=== PATIENT | male | born 1950 | race Caucasian/White ===

== ENCOUNTER → 2018-08-21 07:23 | Outpatient (CLI) | payer SELFPAY ==
[2018-08-21 09:16] LABS: Cholesterol 116 mg/dL (140-199); HDL Cholesterol 49 mg/dL (40-60); LDL Cholesterol Calculated 53 mg/dL (<100); Triglycerides 71 mg/dL (35-150)
== END ==
PROVIDERS: Visit Provider Physician Assistant
DX: E78.5 Hyperlipidemia, unspecified (principal)
CPT/HCPCS: 36415; 80061

== ENCOUNTER → 2019-04-22 13:40 | Outpatient (CLI) | payer OTHER, SELFPAY ==
--- NOTE | 2019-04-22 | DI.ECHO.S_ITS ---
[facility]---------+ [facility] +---------+ : : [address] : : : [place] : : : : [id number] : : : : Phone: [phone] Echocardiogram Report + + :Name: FAWN GONZALEZ Study Date: 04/22/2019 Height: 72 in : :[facility] Exam Location: IS Weight: 207 lb : : Gender: Male BSA: 2.2 m2 : :: 1950 Age: 68 yrs BP: 110/70 mmHg: :Reason For Study: Congenital aortic insufficiency : :Ordering Physician: Demar Jose : :[place] Performed By: Rashmi Page : + + Interpretation Summary 1) Normal left ventricular size, thickness, and systolic function (EF 55-60%). 2) Basal to mid inferior wall extending to the inferolateral are hypokinetic. 3) Mildly enlarged right ventricle with normal function. 4) The aortic valve is bicuspid. 5) There is mild to moderate aortic regurgitation. 6) The ascending aorta is moderately enlarged at 4.7cm. The aortic root is mildly dilated at 4.4cm. 7) No prior Echo available for comparison. Procedure: A two-dimensional transthoracic echocardiogram with color flow and Doppler was performed. The study quality was technically adequate. There is no prior echocardiogram noted for this patient. The patient was in sinus bradycardia with heart rates between 47-55 bpm during the exam. Left Ventricle: The left ventricle is normal in size, wall thickness, and systolic function without any focal wall motion abnormalities. The ejection fraction is estimated to be 55-60%. Basal to mid inferior wall extending to the inferolateral are hypokinetic. Diastolic parameters suggest probable normal left ventricular diastolic function and normal filling pressures. Right Ventricle: The right ventricle is mildly dilated. The right ventricular systolic function is normal. Atria: The left atrium is moderately dilated. The right atrium is severely dilated. There is no Doppler evidence for an interatrial shunt. Mitral Valve: The mitral valve is normal in structure and function. There is mild mitral annular calcification. There is trace mitral regurgitation. Aortic Valve: The aortic valve is bicuspid. There is no aortic valve stenosis. There is mild to moderate aortic regurgitation. Tricuspid Valve: The tricuspid valve is normal in structure and function. There is trace tricuspid regurgitation. Pulmonary artery pressures cannot be estimated because of the lack of a measurable TR jet velocity. Pulmonic Valve: The pulmonic valve is not well visualized. There is trace pulmonic regurgitation. Great Vessels: The aortic root is mildly dilated. The ascending aorta is moderately enlarged. The pulmonary artery is not well visualized, but is probably normal size. The inferior vena cava was not visualized. Pericardium/ Pleura There is no pericardial effusion. There is no pleural effusion. MMode/2D Measurements & Calculations LVIDd: 5.3 cm LVOT diam: 2.4 cm LVIDs: 4.5 cm Ao root diam: 4.4 cm FS: 14.1 % asc Aorta Diam: 4.7 cm EPSS: 0.62 cm IVSd: 0.93 cm LVPWd: 0.92 cm LV valerio. diameter/BSA (cm/m^2): 2.4 LV sys. diameter/BSA (cm/m^2): 2.1 LA A2 area: 28.3 cm2 RA long axis: 6.0 cm LA A4 area: 23.8 cm2 RA area: 28.3 cm2 LA length (vol): 6.1 cm RA vol: 113.7 ml LA vol: 93.3 ml RA : 52.6 ml/m2 LA vol index: 43.1 ml/m2 RVD1 (basal): 5.1 cm RVD2 (mid): 5.0 cm Doppler Measurements & Calculations Ao V2 max: 155.3 cm/sec LVOT Max Amador: 64.9 cm/sec Ao V2 mean: 114.8 cm/sec LV V1 max P.7 mmHg Ao max P.6 mmHg LV V1 VTI: 16.6 cm Ao mean P.7 mmHg CONCEPCIÓN(I,D): 1.9 cm2 Ao V2 VTI: 39.9 cm CONCEPCIÓN(V,D): 1.9 cm2 sev ratio: 0.42 CONCEPCIÓN indexed to BSA (cm^2/m^2): 0.89 AI P1/2t: 785.7 msec AI dec slope: 147.8 cm/sec2 MV E max amador: 55.3 cm/sec TR max amador: 173.6 cm/sec MV A max amador: 65.9 cm/sec TR max P.1 mmHg MV E/A: 0.84 PA V2 max: 67.1 cm/sec Med Peak E' Amador: 5.6 cm/sec PA V2 mean: 44.2 cm/sec E/E' med: 9.9 PA mean P.88 mmHg Lat Peak E' Amador: 12.4 cm/sec PA Accel Time: 0.14 sec E/E' lat: 4.5 E/e' average: 7.2 MV dec time: 0.31 sec MV P1/2t: 93.3 msec MV 2t max amador: 55.7 cm/sec SV(LVOT): 77.0 ml MVA(t): 2.4 cm2 Reading Physician:04:42 PM
== END ==
PROVIDERS: Family Provider Nurse Practitioner Family; PCP Nurse Practitioner Family; Visit Provider Internal Medicine Cardiovascular Disease
DX: Q23.1 Congenital insufficiency of aortic valve (principal); I77.89 Other specified disorders of arteries and arterioles
CPT/HCPCS: 93306

== ENCOUNTER 2019-11-23 11:17 | Emergency (ER) | payer OTHER, SELFPAY ==
[2019-11-23 11:29] VITALS: BP 159/77; PULSE 72; RESP 18; TEMP 36.4; O2SAT 99
--- NOTE | 2019-11-23 11:47 | DI.RAD.S_ITS ---
PROCEDURE: XR ABDOMEN 1V INDICATIONS: constipation / acute urinary retention TECHNIQUE: One view of the abdomen acquired. COMPARISON: None. FINDINGS: Surgical changes and devices: None. Bowel: A moderate amount of stool is present throughout the colon. A large amount of inspissated stool is present within the rectosigmoid. Soft tissues: No suspicious abdominal calcifications. Visualized solid organ contours appear normal in size. Bones: No suspicious bony lesions. IMPRESSION: Radiographic findings suggesting fecal impaction. No bowel obstruction yet visualized. Dictated by: Marzena Ramírez M.D. on 11/23/2019 at 12:12 Approved by: Marzena Ramírez M.D. on 11/23/2019 at 12:13
[2019-11-23] MEDS: LIDOCAINE 2% (UROJET) 5 ML GEL TOP (11:50)
[2019-11-23] MEDS: SODIUM CHLORIDE 0.9% 1,000 ML 1000 ML IV (12:28)
[2019-11-23 12:29] LABS: Bacteria Urine None Seen; WBC Urine None Seen (0-5/HPF)
[2019-11-23 12:34] LABS: Add Manual Diff / Slide Review NO; Basophils Absolute Auto 0 /uL (0-100); Basophils Percent Auto 0.6 % (0-2); Eosinophils Absolute Auto 100 /uL (0-450); Eosinophils Percent Auto 1.2 % (2-4); Hematocrit 44.3 % (41-53); Hemoglobin 15.6 g/dL (13.5-17.5); Lymphocytes Absolute Auto 1500 /uL (1100-4500); Lymphocytes Percent Auto 20.7 % (25-40); Mean Corpuscular HGB Conc 35.1 % (30-36); Mean Corpuscular Hemoglobin 32.6 PG (26-34); Monocytes Absolute Auto 700 /uL (0-900); Monocytes Percent Auto 9.4 % (3-14); Neutrophils Absolute Auto 4900 /uL (1500-7000); Neutrophils Percent Auto 68.1 % (50-75); Platelet Count 239 X10^3/uL (150-400); Red Blood Cell Count 4.76 X10^6/uL (4.5-5.9); White Blood Cell Count 7.2 X10^3/uL (4.5-11.0)
--- NOTE | 2019-11-23 12:35 | PC.NURSE ---
Pt's very upset at hallway placement. Verbally understood reasoning (high acuity patients needing monitoring/ full ED) Pt moved into patient room to place catheter, then moved into [facility] for IV placement, then room 5 for remainder of care. Verbally reassured. Pt himself had no concerns and was able to advocate for his needs w/o assistance.
[2019-11-23 12:38] LABS: Appearance Urine UA CLEAR; Bilirubin Urine UA NEGATIVE (NEGATIVE); Color Urine UA YELLOW; Glucose Urine UA NEGATIVE (Negative); Ketones Urine UA NEGATIVE (NEGATIVE); Leukocyte Esterase Urine UA NEGATIVE (NEGATIVE); Nitrite Urine UA NEGATIVE (Negative); Occult Blood Urine UA TRACE-INTACT (Negative); Protein Urine UA NEGATIVE (Negative); Urobilinogen Urine UA 0.2 E.U./dL (0.2)
--- NOTE | 2019-11-23 12:38 | PC.NURSE ---
Pt w/ urinary retention and constipation (no bm x 3 days). No narcotic use. States no void since last night. Catheter placed w/ complete relief. Abd soft, non tender w/ + bowel sounds. Denies nausea / vomiting. Taking in po well.
[2019-11-23 12:46] LABS: RBC Urine 0-1/HPF (0-5/HPF); Squamous Epithelial Cell Urine 0-1 /HPF (0-5/HPF)
[2019-11-23 12:47] LABS: Culture Indicated Urine Cult Not Indicated
[2019-11-23 12:52] LABS: Alanine Aminotransferase 35 IU/L (<50); Albumin 3.9 g/dL (3.5-5.0); Albumin Globulin Ratio 1.4 (1.0-2.8); Alkaline Phosphatase 90 U/L (38-126); Aspartate Aminotransferase 31 IU/L (17-59); Bilirubin Total 0.9 mg/dL (0.2-1.3); Blood Urea Nitrogen 15 mg/dL (9-20); Calcium 9.1 mg/dL (8.4-10.2); Carbon Dioxide 23 mmol/L (22-32); Chloride 108 mmol/L (98-107); Estimated Glomerular Filt Rate > 60.0 mL/min (>60); Globulin 2.8 g/dL (1.7-4.1); Glucose 99 mg/dL (80-110); HEMOLYSIS < 15 (0-50); Potassium 3.9 mmol/L (3.4-5.1); Sodium 139 mmol/L (137-145); Total Protein 6.7 g/dL (6.3-8.2)
[2019-11-23 14:20] VITALS: BP 137/79; PULSE 58; O2SAT 98
[2019-11-23] MEDS: MINERAL OIL 1 EACH ENEMA PR (14:29)
[2019-11-23 16:07] VITALS: BP 137/79
--- NOTE | 2019-11-23 19:32 | ED_ITS ---
HPI - Male Genitourinary General Chief complaint: Urogenital-Male Stated complaint: Urinary retention/constipation x3 days Time Seen by Provider: 11/23/19 12:42 Source: patient Mode of arrival: Ambulatory Limitations: no limitations History of Present Illness HPI Narrative: CC: Suprapubic abdominal pain unable to urinate HPI: The patient is a 69 year old male who presents to the emergency department with inability to urinate. The patient has been on antibiotics for 3 weeks for a persistent urinary tract infection. The patient has subsequently developed urinary retention and is unable to urinate. He is very uncomfortable. He has also been constipated for the last 3 days prior to admission. The patient's pain and discomfort was significantly relieved by inserting a Clements catheter. The patient states that last night he was straining to have a bowel movement and developed severe pain and discomfort in his rectum. He admits to a history of hemorrhoids. He has had no blood in his stool or urine. His pain and discomfort was some 8 to 10/10 initially. He denies a history of diverticulitis irritable bowel syndrome Crohn's disease or ulcerative colitis. The patient states that he sees a urologist in [place] who also goes to [facility]. He had difficulty in maintaining his last appointment arm going to the wrong City to be seen. The patient denies a history of prostate cancer but has been told that he has an enlarged prostate. He has not received any anesthesia or new medications. He denies a history of diabetes mellitus hypertension stroke congestive heart failure but has had a myocardial infarction in the past. He does not smoke cigarettes periodically drinks alcohol does not use any drugs. Related Data Home Medications Medication Instructions Recorded Confirmed aspirin 81 mg tablet,delayed 81 mg PO BID tab 08/20/18 12/07/18 release Previous Rx's Medication Instructions Recorded metoprolol succinate 50 mg capsule 50 mg PO DAILY #90 each 08/20/18 sprinkle, ext. release 24 hr pantoprazole 40 mg tablet,delayed 40 mg PO DAILY #90 tab 08/20/18 release atorvastatin 40 mg tablet 40 mg PO DAILY #90 tab 08/21/18 cephalexin [Keflex] 500 mg PO TID #15 cap 11/23/19 Allergies Allergy/AdvReac Type Severity Reaction Status Date / Time No Known Drug Allergies Allergy Verified 11/23/19 11:31 Review of Systems Review of Systems Narrative: REVIEW OF SYSTEMS: CONSTITUTIONAL: Denies any fever chills or sweats. He has had no weight loss. NEUROLOGICAL: Denies any numbness tingling paresthesias anesthesia or paresis. EENT: Denies any sore throat difficulty in swallowing change in vision. CARDIO-PULMONARY: Denies any chest pain cough shortness of breath palpitations or dizziness. GASTROINTESTINAL: Has been constipated with rectal pain. He has had no nausea or vomiting. DERMATOLOGICAL: No bruising or bleeding Patient History Social History Smoking Status: Never smoker Smoking Status: Never smoker alcohol intake frequency: 0-2 drinks per day Substance Use Type: does not use Exam Narrative Exam Narrative: PHYSICAL EXAM: CONSTITUTIONAL: Awake, Alert, Oriented, Coherent, Cooperative in NAD at the time that I was seeing the patient. The patient had already been catheterized. HEAD: AT/NC EENT: PERRL, FROM of eyes, no discharge, NECK: Supple, no obvious JVD, Trachea is midline without stridor, no palpable LN. SPINE: Palpationof the cervical, Thoracic, Lumbar or Sacral spine reveals no gross deformity or tenderness. No CVA tenderness. THORAX: No deformity, chest wall tenderness. LUNGS: Clear, symmetrical breath sounds without respiratory distress. HEART: Normal heart tones, regular rhythm and rate without murmur. ABDOMEN: Soft, non-tender, normal bowel sounds without guarding, rebound, rigi dity or palpable mass. Rectal exam reveals that the patient has a very tight sphincter. It almost feels as though he has a stricture in his rectum. There was no blood but there was 1 external hemorrhoid. Prostate was smooth without pain and discomfort. It just made him feel as though he had to urinate. The patient was constipated with a fecal impaction. EXTREMITIES: No edema, deformity, tenderness or cyanosis. NEURO: Awake, alert, oriented, conversive, cranial nerves II-XII are symmetrical , moves all 4 extremities and is ambulatory. Initial Vital Signs Initial Vital Signs: Vital Signs Temperature 97.5 F L 11/23/19 11:29 Pulse Rate 72 11/23/19 11:29 Respiratory Rate 18 11/23/19 11:29 Blood Pressure 159/77 H 11/23/19 11:29 Pulse Oximetry 99 11/23/19 11:29 Course Course Course Narrative: Along explanation of the pathology was given to the patient and plan on treatment. Orders Ordered: ED Orders 11/23/19 11:46 Complete Blood Count AUTO DIFF Stat Comprehensive Metabolic Panel Stat 11/23/19 11:47 XR abdomen 1V Stat 11/23/19 12:27 Urinalysis and Microscopic Stat Discontinued Medications Sodium Chloride (Normal Saline 0.9%) 1,000 mls @ 1,000 mls/hr IV BOLUS ONE Stop: 11/23/19 12:45 Last Infusion: 11/23/19 14:29 Dose: 0 mls/hr Documented by: Admin: 11/23/19 12:28 Dose: 1,000 mls/hr Documented by: KRISTINE Lidocaine HCl (Urojet) 5 ml TOP NOW ONE Stop: 11/23/19 11:33 Last Admin: 11/23/19 11:50 Dose: 5 ml Documented by: KRISTINE Mineral Oil (Mineral Oil Enema) 1 each WI NOW ONE Stop: 11/23/19 13:53 Last Admin: 11/23/19 14:29 Dose: 1 each Documented by: DAVID Vital Signs Vital signs: Vital Signs - 8 hr 11/23/19 14:20 11/23/19 16:07 Pulse Rate 58 L Blood Pressure 137/79 Blood Pressure [Right Arm] 137/79 Pulse Oximetry 98 MDM - Male Genitourinary Medical Records Attestation: I reviewed the patient's medical records. Lab Data Attestation: I reviewed the patient's lab results. Result diagrams: 11/23/19 11:46 11/23/19 11:46 Labs: Lab Results 11/23/19 11/23/19 11/23/19 Range/Units 11:46 11:46 12:27 WBC 7.2 (4.5-11.0) X10^3/uL RBC 4.76 (4.5-5.9) X10^6/uL Hgb 15.6 (13.5-17.5) g/dL Hct 44.3 (41-53) % MCV 93.0 (80-100) fL MCH 32.6 (26-34) PG MCHC 35.1 (30-36) % RDW 13.0 (11.6-14.8) % Plt Count 239 (150-400) X10^3/uL Neut % (Auto) 68.1 (50-75) % Lymph % (Auto) 20.7 L (25-40) % Deuel % (Auto) 9.4 (3-14) % Eos % (Auto) 1.2 L (2-4) % Baso % (Auto) 0.6 (0-2) % Neut # (Auto) 4900 (3262-5870) /uL Lymph # (Auto) 1500 (5795-2485) /uL Deuel # (Auto) 700 (0-900) /uL Eos # (Auto) 100 (0-450) /uL Baso # (Auto) 0 (0-100) /uL Sodium 139 (137-145) mmol/L Potassium 3.9 (3.4-5.1) mmol/L Chloride 108 H (98-107) mmol/L Carbon Dioxide 23 (22-32) mmol/L BUN 15 (9-20) mg/dL Creatinine 0.79 (0.66-1.25) mg/dL Estimated GFR > 60.0 (>60) mL/min BUN/Creatinine Ratio 19.0 (6-22) Glucose 99 (80-110) mg/dL Calcium 9.1 (8.4-10.2) mg/dL Total Bilirubin 0.9 (0.2-1.3) mg/dL AST 31 (17-59) IU/L ALT 35 (<50) IU/L Alkaline Phosphatase 90 (38-126) U/L Total Protein 6.7 (6.3-8.2) g/dL Albumin 3.9 (3.5-5.0) g/dL Globulin 2.8 (1.7-4.1) g/dL Albumin/Globulin Ratio 1.4 (1.0-2.8) Urine Color Yellow Urine Appearance Clear Urine pH 6.0 (4.5-8.0) Ur Specific [place] 1.020 (1.000-1.035) Urine Protein Negative (Negative) Urine Glucose (UA) Negative (Negative) g/dL Urine Ketones Negative (NEGATIVE) Urine Occult Blood Trace-intact (Negative) Urine Nitrate Negative (Negative) Urine Bilirubin Negative (NEGATIVE) Urine Urobilinogen 0.2 (0.2) E.U./dL Ur Leukocyte Esterase Negative (NEGATIVE) Urine RBC 0-1/hpf (0-5/HPF) Urine WBC None seen (0-5/HPF) Ur Squamous Epith Cells 0-1 /hpf (0-5/HPF) Urine Bacteria None seen (None) Ur Culture Indicated? Cult not indicated Discharge Plan Departure Patient Disposition: Home Clinical Impression: Acute urinary retention, Fecal impaction Constipation Qualifiers: Constipation type: unspecified constipation type Qualified Code(s): K59.00 - Constipation, unspecified Discharge Date/Time: 11/23/19 16:08 Instructions: How to Care for Your Clements Catheter -- Male, DI for Urinary Tract Infection (UTI), DI for Constipation, DI for Urinary Retention in Men Activity Restrictions/Additional Instructions: 1. Follow-up with your primary care physician to re-evaluate you and removed the Clements catheter if you cannot be seen by and in system urologist. 2. You can follow-up with Dr. Delgado a urologist here in [facility] 3. Take the Keflex 500 mg 3 times a day as needed as long as the Clements catheter is in place. Usually the Clements catheter is removed after 2-3 days. If you are unable to be seen by a urologist in that time. You can try being seen by your primary care physician. There is always a potential risk that you may rehab struck it when the catheter is removed. 4. For the fecal impaction and fecal constipation you can take a Fleet's enema daily for the next 3 days. To help keep her stool soft you can take Metamucil and follow the directions on its use. You can also to take 1-3 packets of MiraLax to help you have bowel movements. If you develops super soft stool or diarrhea cut the MiraLax in half. 5. Drink plenty of fluids to keep yourself hydrated. If you develop intolerable pain, persistent nausea and vomiting, fever chills sweats chest pain fainting spells you need to return to the emergency department. Prescriptions: New cephalexin [Keflex] 500 mg capsule 500 mg PO TID Qty: 15 RF: 0 No Action aspirin 81 mg tablet,delayed release (DR/EC) 81 mg PO BID RF: 0 metoprolol succinate 50 mg cap,sprinkle,ER 24hr dose pack 50 mg PO DAILY Qty: 90 RF: 2 pantoprazole 40 mg tablet,delayed release (DR/EC) 40 mg PO DAILY Qty: 90 RF: 2 atorvastatin 40 mg tablet 40 mg PO DAILY Qty: 90 RF: 2 Referrals: Sunitha Torres ARNP [Primary Care Provider] - Martha Guillen MD [Physician] -
== END 2019-11-23 16:08 | disposition home or self-care (01) ==
PROVIDERS: Nurse Practitioner; Emergency Provider Emergency Medicine; Family Provider Nurse Practitioner Family; PCP Nurse Practitioner Family
DX: R33.9 Retention of urine, unspecified (principal); K56.41 Fecal impaction
CPT/HCPCS: 36415; 51701; 74018; 80053; 81001; 85025; 96360; 96361; 99284; 99285

== ENCOUNTER → 2020-04-13 08:58 | Outpatient (CLI) | payer OTHER, SELFPAY ==
[2020-04-13 09:37] LABS: Add Manual Diff / Slide Review NO; Basophils Absolute Auto 0 /uL (0-100); Basophils Percent Auto 0.6 % (0-2); Eosinophils Absolute Auto 200 /uL (0-450); Eosinophils Percent Auto 2.8 % (2-4); Hematocrit 45.2 % (41-53); Hemoglobin 15.8 g/dL (13.5-17.5); Lymphocytes Absolute Auto 2000 /uL (1100-4500); Lymphocytes Percent Auto 32.4 % (25-40); Mean Corpuscular HGB Conc 34.9 % (30-36); Mean Corpuscular Hemoglobin 32.8 PG (26-34); Monocytes Absolute Auto 600 /uL (0-900); Monocytes Percent Auto 9.3 % (3-14); Neutrophils Absolute Auto 3400 /uL (1500-7000); Neutrophils Percent Auto 54.9 % (50-75); Platelet Count 204 X10^3/uL (150-400); Red Cell Distribution Width 13.2 % (11.6-14.8); White Blood Cell Count 6.2 X10^3/uL (4.5-11.0)
[2020-04-13 09:46] LABS: BUN Creatinine Ratio 17.2 (6-22); Blood Urea Nitrogen 15 mg/dL (9-20); Calcium 8.6 mg/dL (8.4-10.2); Carbon Dioxide 29 mmol/L (22-32); Chloride 105 mmol/L (98-107); Cholesterol 132 mg/dL (140-199); Estimated Glomerular Filt Rate > 60.0 mL/min (>60); Glucose 113 mg/dL (80-110); HDL Cholesterol 61 mg/dL (40-60); HEMOLYSIS < 15 (0-50); LDL Cholesterol Calculated 59 mg/dL (<100); Potassium 4.1 mmol/L (3.4-5.1); Sodium 139 mmol/L (137-145); Triglycerides 60 mg/dL (35-150)
== END ==
PROVIDERS: Family Provider Nurse Practitioner Family; PCP Internal Medicine; Referring Provider Internal Medicine Cardiovascular Disease; Visit Provider Internal Medicine Cardiovascular Disease
DX: I25.10 Atherosclerotic heart disease of native coronary artery without angina pectoris (principal)
CPT/HCPCS: 36415; 80048; 80061; 85025

== ENCOUNTER → 2020-05-01 14:18 | Outpatient (CLI) | payer OTHER, SELFPAY ==
[2020-05-02 21:40] LABS: COVID19 Sendout Not Detected (Not Detect)
== END ==
PROVIDERS: Family Provider Nurse Practitioner Family; PCP Internal Medicine; Visit Provider Physician Assistant
DX: Z01.812 Encounter for preprocedural laboratory examination (principal)
CPT/HCPCS: 87635

== ENCOUNTER 2020-05-04 13:46 | Day surgery (SDC) | payer OTHER, SELFPAY ==
[2020-05-04] VITALS (7 sets, daily range): BP systolic 104–120; BP diastolic 66–81; PULSE 48–60; RESP 11–16; TEMP 36.3–36.8; O2SAT 96–99; BMI 27.6
--- NOTE | 2020-05-04 | PATH_ITS ---
[facility] Accession Number: [id number] . 01 Material submitted: . colon - INFLAMED MUCOSA SIGMOID . 01 Clinical history: . SDC . 02 Diagnosis: Sigmoid Colon, Biopsy: Colonic mucosa with nonspecific hemorrhage and congestion. Negative for active or microscopic colitis. Negative for granulomata, dysplasia or malignancy. Additional step sections examined. MRV 05/07/2020 1311 Local . 02 Electronically signed: . nAdrew Linda MD, PhD, Pathologist NPI- [id number] . 01 Gross description: . The specimen is received in formalin, labeled inflamed mucosa sigmoid and consists of three corral-pink fragments of soft tissue, measuring 0.3 x 0.3 x 0.1 cm in aggregate. The specimen is entirely submitted in cassette A1. ([id number]) /[facility] 05/05/2020 1703 Local . 02 Pathologist provided ICD-10: Z12.11 . 02 CPT . 299063 Performed at: 01 [facility] [address], [place], [place] [id number] MD Eamon Singleton MD Phone: [phone] Performed at: 02 [facility] [address] [place], [place] [id number] MD Lazara Arzate MD Phone: [phone]
--- NOTE | 2020-05-04 12:44 | P.HP_ITS ---
History of Present Illness History of Present Illness Date Patient Seen: 05/04/20 Chief complaint: SDC Narrative: 69 year old male comes in today for consideration of a screening colonoscopy. Last colonoscopy in 2013, significant for 7 mm tubular adenoma in the transverse colon, 5 year recall. FIT negative on 02/05/2019. Prior to that has had colonoscopy in 2008 significant for 1 adenoma and 1 hyperplastic polyp. There have been no lower GI symptoms suggesting disease such as change in bowel habits, bleeding, abdominal pain or anemia. There's been no family history of colon cancer or colon polyps. Overall health issues have been stable, including no major cardiac events for at least 6 weeks. PCP: GUANACO Melchor Past medical history: Decreased libido Elevated blood sugar Urinary tension Coronary artery disease Benign prostatic hypertrophy Actinic keratosis Hypertension History of STEMI, 2016 Diverticulitis Internal hemorrhoids Past surgical history: Coronary stent placement Family history: Noncontributory Social history: Retired senior java data architect, . Three alcoholic drinks per week. Patient History Family & Social History Tobacco & Substance use: Smoking Status Never smoker alcohol intake frequency 0-2 drinks per day Substance Use Type does not use Meds Home Medications and Allergies Home Medications Medication Instructions Recorded Confirmed Type aspirin 81 mg tablet,delayed 81 mg PO BID tab 08/20/18 05/04/20 History release metoprolol succinate 50 mg capsule 50 mg PO DAILY #90 each 08/20/18 05/04/20 Rx sprinkle, ext. release 24 hr pantoprazole 40 mg tablet,delayed 40 mg PO DAILY #90 tab 08/20/18 05/04/20 Rx release atorvastatin 40 mg tablet 40 mg PO DAILY #90 tab 08/21/18 05/04/20 Rx cephalexin [Keflex] 500 mg PO TID #15 cap 11/23/19 05/04/20 Rx Allergies Allergy/AdvReac Type Severity Reaction Status Date / Time No Known Drug Allergies Allergy Verified 05/04/20 13:59 Review of Systems Review of Systems ROS: Yes All systems reviewed with the patient and are negative except as otherwise documented Exam Narrative Exam Narrative: GENERAL: Alert and oriented, appearing stated age and in no acute distress. HEENT: Head normocephalic/atraumatic. Pupils equal, round, and reactive to light and accomodation. Extraocular muscles intact. Tympanic membranes clear. Nasal mucosa moist, septum midline. Oral mucosa moist, no lesions. Neck soft and supple, no lymphadenopathy. LUNGS: Clear to ausculation bilaterally, no wheezes, rhonchi or rales. CV: Normal S1 and S2 with regular rate and rhythm, no audible murmurs, rubs or gallops. ABDOMEN: Soft, non-tender, non-distended, no organomegaly. Positive bowel sounds. EXTREMITIES: No clubbing, cyanosis, or edema. NEURO: Cranial nerves II through XII grossly intact, no focal deficits. PSYCH: Alert and oriented x 3. SKIN: No concerning lesions. Assessment & Plan Assessment & Plan narrative: 1. History of colon polyps 2. Screening for colon cancer Plan for colonoscopy. The nature and character of the procedure as well as anticipated results were discussed. The possibility of not completing the procedure was also discussed. Possible complications including aspiration pneumonia, bleeding, perforation and reaction to medications either for sedation or preparation and missed lesions were discussed. Questions were answered and proceeding to the colonoscopy was elected. Informed consent signed. I sincerely appreciate the referral allowing me to participate in this patient's care. Please contact me with any questions or concerns.
--- NOTE | 2020-05-04 12:48 | PM.OP.ENDO ---
Operative Date/Time/Diagnoses Date of procedure: 05/04/20 Procedure Notes SCOAP/Timeout: 2:41 p.m. Procedure in detail: ENDOSCOPIST: Ellyn Connelly MD Sedation RN: Ariel Price RN Sedation start time: 2:42 p.m. Sedation end time: 3:06 p.m. PROCEDURE: Colonoscopy with cold biopsy INDICATIONS: 1. History of colon polyps 2. Screening for colon cancer MEDICATION: Levsin 0.125 mg sublingual, incremental doses of Versed and fentanyl until appropriate level sedation achieved. ASA CLASS: 2 CECAL WITHDRAWAL TIME: 10 minutes COMPLICATIONS: None. EXTENT OF PROCEDURE: Cecum. QUALITY OF PREP: Good with portions of liquid stool. PROCEDURE: Prior to insertion of the colonoscope, a digital rectal examination was accomplished with circumferential palpation of the distal rectal mucosa without significant findings being noted. The high-definition colonoscope was passed into the rectum in the usual fashion and advanced over to the cecum without difficulty. The ileocecal valve, appendiceal stoma, and medial wall all could be inspected and no abnormalities were seen. ASCENDING COLON: As the colonoscope was withdrawn, care was taken to expose and inspect the haustral folds and no abnormalities were seen. HEPATIC FLEXURE: Normal, no polyps, diverticula or other abnormalities. TRANSVERSE COLON: Normal, no polyps, diverticula or other abnormalities. DESCENDING COLON: Minor diverticulosis, otherwise, normal, no polyps or other abnormalities. SIGMOID COLON: Minor diverticulosis. Inflamed and edematous mucosa at approximately 40 cm, targeted biopsy taken x2. Otherwise, no polyps or other abnormalities. RECTUM: Normal. J maneuver was produced. There was no significant perianal disease. The J maneuver was broken. The remainder of the rectum was inspected and there was no external hemorrhoid disease. The scope was withdrawn. IMPRESSION: 1. Diverticulosis, left-sided, minor 2. Inflamed mucosa, sigmoid, 40 cm, targeted biopsy taken x2. PLAN: 1. Follow-up in clinic status post pathology results. The possibility of a missed lesion including a malignancy has been discussed with the patient previously. Potential alarm symptoms have been discussed and should be reported immediately.
[2020-05-04] MEDS: HYOSCYAMINE 0.125 MG TABLET PO (14:09)
[2020-05-04] MEDS: LACTATED RINGERS 1,000 ML 200 ML IV (14:09)
[2020-05-04] MEDS: MIDAZOLAM 5 MG/5 ML VIAL IV (14:42)
[2020-05-04] MEDS: fentaNYL 250 MCG/5 ML INJ IV (14:42)
--- NOTE | 2020-05-04 16:05 | SUR.PHASEII ---
Stable Phase 2, belly sift no nausea. Pt left when ready and left in stable condition.
== END 2020-05-04 16:04 | disposition home or self-care (01) ==
PROVIDERS: Family Provider Nurse Practitioner Family; PCP Internal Medicine; Referring Provider Internal Medicine; Visit Provider Student in an Organized Health Care Education/Training Program
PROC: 0DJD8ZZ Inspection of Lower Intestinal Tract, Via Natural or Artificial Opening Endoscopic (ICD-10-PCS; CPT 45378; principal; 2020-05-04 14:30)
DX: Z12.11 Encounter for screening for malignant neoplasm of colon (principal); K57.30 Diverticulosis of large intestine without perforation or abscess without bleeding; I10 Essential (primary) hypertension; I25.2 Old myocardial infarction
CPT/HCPCS: 45380; J2250; J3010

== ENCOUNTER → 2020-06-02 09:19 | Outpatient (CLI) | payer OTHER, SELFPAY ==
--- NOTE | 2020-06-02 | DI.ECHO.S_ITS ---
[facility] +---------+ [facility] +---------+ : : [address] : : : : [place] : : : : [id number] : : : : Phone: [phone] +---------+ Echocardiogram Report + + :Name: FAWN GONZALEZ Study Date: 06/02/2020 Height: 72 in : :[facility] Weight: 207 lb : : Gender: Male BSA: 2.2 m2 : :: 1950 Age: 69 yrs BP: 139/83 mmHg: :Reason For Study: OTHER SPECIFIED DISORDERS OF ARTERIES AND : :ARTERIOLS : :Ordering Physician: MEHDI, : :ALEX Performed By: Joy Mcdaniels : :Referring: ALEX BETANCOURT : + + Interpretation Summary 1) Normal left ventricular size and thickness with mildly reduced function (EF 45-50%). 2) Basal to mid inferior wall extending to the basal to mid inferolateral are hypokinetic. 3) Mildly enlarged right ventricle with normal function. 4) The aortic valve is bicuspid. 5) There is mild to moderate aortic regurgitation. 6) The ascending aorta is moderately enlarged at 4.7cm. The aortic root is mildly dilated at 4.3cm. 7) Compared to the Echo done 04/22/2019, LVEF has decreased from about 50-55% to 45-50% on this study (when compared visually). Procedure: A two-dimensional transthoracic echocardiogram with color flow and Doppler was performed. The study quality was technically adequate. Comparison is made with the echocardiogram of 04/22/2019. The patient was in sinus bradycardia with heart rates between 44-55 bpm during the exam. Left Ventricle: The left ventricle is normal in size and wall thickness. The ejection fraction is estimated to be 45-50%. Basal to mid inferior wall extending to the basal to mid inferolateral are hypokinetic. Diastolic parameters suggest a relaxation abnormality of the left ventricle, consistent with probable normal filling pressures. Right Ventricle: The right ventricle is mildly dilated. The right ventricular systolic function is normal. Atria: The left atrium is mildly dilated. Right atrial size is normal. There is no Doppler evidence for an interatrial shunt. Mitral Valve: The mitral valve is normal in structure and function. There is trace mitral regurgitation. Aortic Valve: The aortic valve is bicuspid. There is no aortic valve stenosis. There is mild to moderate aortic regurgitation. Tricuspid Valve: The tricuspid valve is normal in structure and function. There is mild tricuspid regurgitation. Pulmonary artery pressures cannot be estimated because of the lack of a measurable TR jet velocity but the IVC suggests a CVP of around 3 mmHg. Pulmonic Valve: The pulmonic valve leaflets are thin and pliable; valve motion is normal. There is mild pulmonic regurgitation. Great Vessels: The aortic root is mildly dilated. The ascending aorta is moderately enlarged. The IVC is of normal diameter and collapses greater than 50% with a sniff. This suggests a low right atrial pressure of 3 mm Hg. Pericardium/ Pleura There is no pericardial effusion. There is no pleural effusion. MMode/2D Measurements & Calculations LVIDd: 5.9 cm LVOT diam: 2.1 cm LVIDs: 4.0 cm Ao root diam: 4.3 cm FS: 32.7 % asc Aorta Diam: 4.7 cm EPSS: 0.76 cm Ao Arch Diam (Prox Trans): 2.6 cm IVSd: 0.90 cm LVPWd: 0.77 cm LV valerio. diameter/BSA (cm/m^2): 2.7 LV sys. diameter/BSA (cm/m^2): 1.8 LA A2 area: 25.4 cm2 RA long axis: 5.4 cm LA A4 area: 22.8 cm2 RA area: 18.3 cm2 LA length (vol): 5.5 cm RA vol: 53.2 ml LA vol: 88.8 ml RA : 24.6 ml/m2 LA vol index: 41.1 ml/m2 IVC diam: 0.86 cm RVD1 (basal): 4.5 cm TAPSE: 1.9 cm Doppler Measurements & Calculations Ao V2 max: 136.6 cm/sec LVOT Max Amador: 70.0 cm/sec Ao V2 mean: 95.8 cm/sec LV V1 max P.0 mmHg Ao max P.5 mmHg LV V1 VTI: 18.0 cm Ao mean P.1 mmHg CONCEPCIÓN(I,D): 1.8 cm2 Ao V2 VTI: 35.7 cm CONCEPCIÓN(V,D): 1.8 cm2 sev ratio: 0.50 CONCEPCIÓN indexed to BSA (cm^2/m^2): 0.84 AI P1/2t: 888.2 msec AI dec slope: 129.4 cm/sec2 MV E max amador: 59.9 cm/sec PA V2 max: 59.8 cm/sec MV A max amador: 68.4 cm/sec PA V2 mean: 38.0 cm/sec MV E/A: 0.88 PA mean P.68 mmHg Med Peak E' Amador: 5.1 cm/sec PA pr(Accel): 15.6 mmHg E/E' med: 11.8 Lat Peak E' Amadro: 7.7 cm/sec E/E' lat: 7.8 E/e' average: 9.8 MV dec time: 0.26 sec SV(LVOT): 64.6 ml Reading Physician:03:25 PM
== END ==
PROVIDERS: Family Provider Nurse Practitioner Family; PCP Internal Medicine; Referring Provider Internal Medicine Cardiovascular Disease; Visit Provider Internal Medicine Cardiovascular Disease
DX: I77.89 Other specified disorders of arteries and arterioles (principal)
CPT/HCPCS: 93306

== ENCOUNTER → 2020-07-20 13:11 | Outpatient (CLI) | payer OTHER, SELFPAY ==
[2020-07-20 14:31] LABS: COVID19 -Nasal RAPID Negative (Negative)
== END ==
PROVIDERS: Family Provider Nurse Practitioner Family; PCP Internal Medicine; Visit Provider Physician Assistant
DX: Z01.812 Encounter for preprocedural laboratory examination (principal); Z20.822 Contact with and (suspected) exposure to COVID-19
CPT/HCPCS: 87635; C9803

== ENCOUNTER → 2020-07-21 09:12 | Outpatient (CLI) | payer OTHER, SELFPAY ==
--- NOTE | 2020-07-21 | DI.NM.S_ITS ---
PROCEDURE: NM CRISTAL PERF SPECT REST & STR Rest and exercise myocardial perfusion SPECT with gated imaging and ejection fraction RADIOPHARMACEUTICAL: 12.0 mCi Tc-99m sestamibi IV at rest and 25.8 mCi Tc-99m sestamibi IV at peak exercise. A two day-protocol was performed. INDICATIONS: Atherosclerotic heart disease of [place] coronary TECHNIQUE: Radiopharmaceutical was injected at peak stress test, and also at rest. SPECT images were obtained. SPECT myocardial perfusion images were displayed in short axis, horizontal long axis, and vertical long axis views. Gated images were reviewed using GrabCAD software. COMPARISON: None. CARDIAC STRESS: A standard Antonio treadmill exercise tolerance test was performed by the patient under the supervision of an attending staff. The patient exercised for 10 minutes and 0 seconds; functional aerobic impairment (SARITA) is -33%. Hemodynamic data: There is normal blood pressure and heart rate response to exercise stress. Patient achieved 111% of maximum predicted heart rate at peak exercise. Symptoms: Patient denied chest pain during exercise. EKG: No diagnostic EKG changes of ischemia; no ectopy. FINDINGS: Raw data: There is good myocardial labeling by radiotracer. No significant motion artifacts. Igbm-wn-mespo ratio is 0.30 (normal is less than 0.38 for sestamibi tracer, and less than 0.50 for thallium tracer). Left ventricle function: Gated images demonstrate normal left ventricle wall thickening. No segmental wall motion abnormality. No transient ischemic dilation; TID is 0.88 (normal less than 1.3). The left ventricle resting end-diastolic volume is 164 mL. Left ventricle stress ejection fraction is 61%; normal values are above 45%. Myocardial perfusion: There is moderately intense fixed inferior wall defect that persists on prone imaging and is, thus, consistent with prior non-transmural infarction with no significant ischemia. IMPRESSION: Abnormal treadmill nuclear stress test consistent with prior inferior infarct and no significant anuj-infarct ischemia. 1) There is moderately intense fixed inferior wall defect that persists on prone imaging and is, thus, consistent with prior non-transmural infarction with no significant anuj-infarct ischemia. 2) Mildly enlarged left ventricular size with normal wall motion, and normal systolic function (EF post stress 61%). 3) No ECG evidence of ischemia. 4) No angina during the study. 5) Good exercise tolerance (12.8 METs, SARITA -33%). Target heart rate achieved. Appropriate BP response to exercise. 6) No prior nuclear stress test available for comparison. Dictated by: Demar Betancourt MD on 07/21/2020 at 17:36 Approved by: Demar Betancourt MD on 07/21/2020 at 17:41
--- NOTE | 2020-07-21 15:28 | PM.TREADMILL ---
Cardiac Stress Test Report Referral & Results Date Patient Seen: 07/21/20 Time Patient Seen: 15:28 Requesting provider: Demar Betancourt Indication: chest pain, hx of CAD, STEMI Rest ECG: sinus bradycardia with T wave inversion in II, III, aVF, V4-V6 Procedure Note: Standard Antonio protocol, 9:59, 10.7 Normal exercise capacity, SARITA -33% Normal hemodynamic response to exercise No chest pain or anginal symptoms No significant ST exercise at peak exercise or ectopy Impression: normal exercise stress test Please note: Actual ECG tracings can be found in the PACS system.
== END ==
PROVIDERS: Family Provider Nurse Practitioner Family; PCP Internal Medicine; Referring Provider Internal Medicine; Visit Provider Internal Medicine Cardiovascular Disease
DX: R94.39 Abnormal result of other cardiovascular function study (principal); R07.9 Chest pain, unspecified; I25.10 Atherosclerotic heart disease of native coronary artery without angina pectoris; I25.2 Old myocardial infarction
CPT/HCPCS: 78452; 93017; A9502

== ENCOUNTER → 2021-06-04 07:14 | Outpatient (CLI) | payer OTHER, SELFPAY ==
[2021-06-04 08:37] LABS: Add Manual Diff / Slide Review NO; Basophils Absolute Auto 0 /uL (0-100); Basophils Percent Auto 0.7 % (0-2); Eosinophils Absolute Auto 300 /uL (0-450); Eosinophils Percent Auto 5.2 % (2-4); Hematocrit 43.5 % (41-53); Hemoglobin 15.1 g/dL (13.5-17.5); Lymphocytes Absolute Auto 1900 /uL (1100-4500); Lymphocytes Percent Auto 39.1 % (25-40); Mean Corpuscular HGB Conc 34.6 % (30-36); Mean Corpuscular Hemoglobin 32.2 PG (26-34); Mean Corpuscular Volume 92.9 fL (80-100); Monocytes Absolute Auto 500 /uL (0-900); Monocytes Percent Auto 9.6 % (3-14); Neutrophils Absolute Auto 2200 /uL (1500-7000); Neutrophils Percent Auto 45.4 % (50-75); Platelet Count 200 X10^3/uL (150-400); Red Blood Cell Count 4.68 X10^6/uL (4.5-5.9); Red Cell Distribution Width 13.2 % (11.6-14.8); White Blood Cell Count 4.8 X10^3/uL (4.5-11.0)
[2021-06-04 08:49] LABS: BUN Creatinine Ratio 19.1 (6-22); Blood Urea Nitrogen 17 mg/dL (9-20); Calcium 8.9 mg/dL (8.4-10.2); Carbon Dioxide 24 mmol/L (22-32); Chloride 106 mmol/L (98-107); Cholesterol 137 mg/dL (140-199); Estimated Glomerular Filt Rate > 60.0 mL/min (>60); Glucose 114 mg/dL (80-110); HDL Cholesterol 49 mg/dL (40-60); HEMOLYSIS < 15 (0-50); LDL Cholesterol Calculated 70 mg/dL (<100); Potassium 4.1 mmol/L (3.4-5.1); Sodium 138 mmol/L (137-145); Triglycerides 90 mg/dL (35-150)
== END ==
PROVIDERS: Family Provider Nurse Practitioner Family; PCP Internal Medicine; Referring Provider Internal Medicine Cardiovascular Disease; Visit Provider Internal Medicine Cardiovascular Disease
DX: I25.10 Atherosclerotic heart disease of native coronary artery without angina pectoris (principal); E78.5 Hyperlipidemia, unspecified
CPT/HCPCS: 36415; 80048; 80061; 85025

== ENCOUNTER → 2021-06-15 13:40 | Outpatient (CLI) | payer OTHER, SELFPAY ==
--- NOTE | 2021-06-15 13:42 | DI.ECHO.S_ITS ---
[place] +---------+ [facility] +---------+ : : [address] : : [place] : : : : [id number] : : : : Phone: [phone] +---------+ Echocardiogram Report + + :Name: FAWN GONZALEZ Study Date: 06/15/2021 Height: 71 in : :[facility] ReadingLocation: Weight: 215 lb : : Gender: Male BSA: 2.2 m2 : :: 1950 Age: 70 yrs BP: 134/75 mmHg: :Reason For Study: ASCENDING AORTA ENLARGEMENT : :Ordering Physician: MEHDI, : :ALEX Performed By: Joy Mcdaniels : :Referring: ALEX BETANCOURT : + + Interpretation Summary 1) Normal left ventricular size and thickness with borderline reduced function (EF about 50%). 2) Basal to mid inferior wall extending to the basal to mid inferolateral are hypokinetic. 3) Mildly enlarged right ventricle with normal function. 4) The aortic valve is bicuspid. 5) There is mild to moderate aortic regurgitation. 6) The ascending aorta is moderately enlarged at 4.5cm. The aortic root is mildly dilated at 4.3cm. 7) Compared to the Echo done 06/02/2020, no significant change. Procedure: A two-dimensional transthoracic echocardiogram with color flow and Doppler was performed. The study quality was technically adequate. Comparison is made with the echocardiogram of 06/02/2020. The patient was in sinus bradycardia with heart rates between 51-61 bpm during the exam. Left Ventricle: The left ventricle is normal in size and wall thickness. The ejection fraction is estimated to be 50-55%. Basal to mid inferior wall extending to the basal to mid inferolateral are hypokinetic. Right Ventricle: The right ventricle is mildly dilated. The right ventricular systolic function is normal. Atria: The left atrium is mildly dilated. The right atrium is mildly dilated. There is no Doppler evidence for an interatrial shunt. Mitral Valve: The mitral valve is normal in structure and function. There is mild mitral annular calcification. There is trace mitral regurgitation. Aortic Valve: The aortic valve is bicuspid. The aortic valve opens well. There is no aortic valve stenosis. There is mild to moderate aortic regurgitation. Tricuspid Valve: The tricuspid valve is normal in structure and function. There is mild tricuspid regurgitation. The right ventricular systolic pressure is estimated to be at least 28 mmHg based on an estimated right atrial pressure of 3 mm Hg. Pulmonic Valve: The pulmonic valve leaflets are thin and pliable; valve motion is normal. There is trace pulmonic regurgitation. Great Vessels: The aortic root is mildly dilated. The ascending aorta is moderately enlarged. The IVC is of normal diameter and collapses greater than 50% with a sniff. This suggests a low right atrial pressure of 3 mm Hg. Pericardium/ Pleura There is no pericardial effusion. There is no pleural effusion. MMode/2D Measurements & Calculations LVIDd: 5.5 cm LVOT diam: 2.3 cm LVIDs: 4.2 cm Ao root diam: 4.3 cm FS: 23.4 % asc Aorta Diam: 4.5 cm IVSd: 0.79 cm Ao Arch Diam (Prox Trans): 3.1 cm LVPWd: 0.87 cm LV valerio. diameter/BSA (cm/m^2): 2.5 LV sys. diameter/BSA (cm/m^2): 1.9 LA A2 area: 23.1 cm2 RA long axis: 6.0 cm LA A4 area: 23.9 cm2 RA area: 26.0 cm2 LA length (vol): 6.3 cm RA vol: 96.7 ml LA vol: 74.8 ml RA : 44.5 ml/m2 LA vol index: 34.4 ml/m2 IVC diam: 1.2 cm RVD1 (basal): 4.4 cm TAPSE: 2.3 cm Doppler Measurements & Calculations Ao V2 max: 173.1 cm/sec LVOT Max Amador: 84.0 cm/sec Ao V2 mean: 122.4 cm/sec LV V1 max P.8 mmHg Ao max P.0 mmHg LV V1 VTI: 21.2 cm Ao mean P.6 mmHg CONCEPCIÓN(I,D): 2.0 cm2 Ao V2 VTI: 44.2 cm CONCEPCIÓN(V,D): 2.1 cm2 sev ratio: 0.48 CONCEPCIÓN indexed to BSA (cm^2/m^2): 0.93 AI P1/2t: 643.1 msec AI dec slope: 177.2 cm/sec2 MV E max amador: 60.4 cm/sec TR max amador: 252.0 cm/sec MV A max amador: 63.5 cm/sec TR max P.4 mmHg MV E/A: 0.95 PA V2 max: 93.7 cm/sec Med Peak E' Amador: 5.2 cm/sec PA V2 mean: 64.5 cm/sec E/E' med: 11.5 PA mean P.9 mmHg Lat Peak E' Amador: 12.1 cm/sec PA pr(Accel): 12.2 mmHg E/E' lat: 5.0 E/e' average: 8.2 MV dec time: 0.27 sec SV(LVOT): 89.7 ml Reading Physician:04:31 PM
== END ==
PROVIDERS: Family Provider Nurse Practitioner Family; PCP Internal Medicine; Referring Provider Internal Medicine Cardiovascular Disease; Visit Provider Internal Medicine Cardiovascular Disease
DX: I08.2 Rheumatic disorders of both aortic and tricuspid valves (principal); I77.810 Thoracic aortic ectasia; I77.89 Other specified disorders of arteries and arterioles
CPT/HCPCS: 93306

== ENCOUNTER 2022-09-25 11:14 | Emergency (ER) | payer MEDICARE, SELFPAY ==
[2022-09-25 11:22] VITALS: BP 141/76; PULSE 76; RESP 18; TEMP 36.4; O2SAT 97; BMI 27.8
--- NOTE | 2022-09-25 11:28 | DI.RAD.S_ITS ---
PROCEDURE: XR HIP W PEL IF DONE RT 2V INDICATIONS: fall skiing, Rt hip pain TECHNIQUE: AP pelvis with lateral view(s) of the right hip(s). COMPARISON: None. FINDINGS: Bones: No fractures or dislocations. Pelvic ring appears intact. No suspicious bony lesions. Degenerative changes of the sacroiliac joints. Mild degenerative changes of both hips. Soft tissues: The visualized bowel gas pattern is normal. No suspicious soft tissue calcifications. IMPRESSION: No acute traumatic abnormality of the right hip. Dictated by: Loc Zurita M.D. on 09/25/2022 at 11:48 Approved by: Loc Zurita M.D. on 09/25/2022 at 11:49
--- NOTE | 2022-09-25 12:01 | ED.GENADULT ---
HPI - General Adult General Chief complaint: Trauma Stated complaint: fall, hip pain/injury Time Seen by Provider: 09/25/22 11:36 Source: patient Mode of arrival: Ambulatory History of Present Illness HPI narrative: Patient is a 72-year-old male who is here for evaluation of right-sided posterior hip pain. He states he was skiing a couple days ago when he was getting off the ski lift 1 of his skis came off in the other 1 went forward. He states he landed directly down on his buttocks. He was able to get up and has been walking around afterwards. No other injuries from the event. Related Data Home Medications Medication Instructions Recorded Confirmed metoprolol succinate 25 mg 25 mg PO DAILY 11/24/21 07/22/22 tablet,extended release 24 hr Previous Rx's Medication Instructions Recorded pantoprazole 40 mg tablet,delayed 40 mg PO DAILY #90 tabs 08/20/18 release atorvastatin 40 mg tablet 40 mg PO DAILY #90 tabs 08/21/18 tamsulosin 0.4 mg capsule See Rx Instructions .Route 05/04/22 .COMPLEX #180 caps tadalafil 5 mg tablet (Cialis) 5 mg PO DAILY Lower urinary tract 06/08/22 symptoms #30 tabs ciprofloxacin HCl 500 mg tablet 500 mg PO BID #20 tabs 07/22/22 (Cipro) Allergies Allergy/AdvReac Type Severity Reaction Status Date / Time No Known Drug Allergies Allergy Verified 07/22/22 09:13 Review of Systems Constitutional Constitutional: Reports system reviewed and no additional complaints, except as documented Gastrointestinal Gastrointestinal: Reports system reviewed and no additional complaints, except as documented Genitourinary Genitourinary: Reports system reviewed and no additional complaints, except as documented Musculoskeletal Musculoskeletal: Reports system reviewed and no additional complaints, except as documented Neurologic Neurologic: Reports system reviewed and no additional complaints, except as documented Patient History Medical History Chronic UTI Heart attack Incomplete emptying of bladder Lower urinary tract symptoms Surgical History (Updated 06/08/22 @ 09:41 by Amador Wilkinson MD) History of prostate surgery Family History Mother Heart disease Grandmother Heart disease Social History marital status: number of children: 1 household members: spouse Smoking Status: Never smoker alcohol intake: current Type(s) of exercise: walking frequency: daily Smoking Status: Never smoker alcohol intake frequency: a few times a week Alcohol type: beer Substance Use Type: does not use Exam Initial Vital Signs Initial Vital Signs: Vital Signs Temperature 97.5 F L 09/25/22 11:22 Pulse Rate 76 09/25/22 11:22 Respiratory Rate 18 09/25/22 11:22 Blood Pressure 141/76 H 09/25/22 11:22 Pulse Oximetry 97 09/25/22 11:22 Oxygen Delivery Method Room Air 09/25/22 11:22 Const General: cooperative, comfortable and No ill appearing HENMT Head: normal to inspection and normocephalic Back/Spine/Pelvis Other: Discomfort on the right posterior SI joint. Extrem Other: No gross deformities. Patient is ambulatory Course Orders Ordered: ED Orders 09/25/22 11:28 XR hip w pel if done RT 2V Stat Vital Signs Vital signs: Vital Signs - 8 hr 09/25/22 11:22 Temperature 97.5 F L Pulse Rate 76 Respiratory Rate 18 Blood Pressure 141/76 H Pulse Oximetry 97 Oxygen Delivery Method Room Air Medical Decision Making Imaging Data Extremity x-ray #1: Attestation: I personally reviewed and interpreted this imaging study as follows: My Impression: Right hip x-ray shows no acute fractures or dislocations MDM Narrative Medical decision making narrative: Patient is ambulatory. No fractures or dislocations noted on the x-rays. His discomfort is over the right SI joint which is what I suspect that he injured after the fall. Will discharge patient home with instructions with conservative measures. No restrictions on activities. He was given return precautions. He expressed understanding and agreement. Discharge Plan Departure Patient Disposition: Home Clinical Impression: Sacroiliac joint pain Activity Restrictions/Additional Instructions: There were no fractures nor dislocations noted on the x-rays. You can walk as tolerated. You can put ice over the area. You can also try Tylenol/ibuprofen. Contact your primary doctor for a follow-up. Prescriptions: No Action pantoprazole 40 mg tablet,delayed release (DR/EC) 40 mg PO DAILY Qty: 90 2RF atorvastatin 40 mg tablet 40 mg PO DAILY Qty: 90 2RF tamsulosin 0.4 mg capsule See Rx Instructions .ROUTE .COMPLEX Qty: 180 3RF Dose Instruction: TAKE TWO CAPSULES BY MOUTH DAILY AT BEDTIME Rx Instructions: TAKE TWO CAPSULES BY MOUTH DAILY AT BEDTIME metoprolol succinate 25 mg tablet extended release 24 hr 25 mg PO DAILY tadalafil [Cialis] 5 mg tablet 5 mg PO DAILY Qty: 30 12RF ciprofloxacin HCl [Cipro] 500 mg tablet 500 mg PO BID Qty: 20 0RF Referrals: Kayla Jade ARNP [Primary Care Provider] - Stand Alone Forms: Patient Portal/API
== END 2022-09-25 12:07 | disposition home or self-care (01) ==
PROVIDERS: Emergency Provider Emergency Medicine; Family Provider Nurse Practitioner Family; PCP Internal Medicine
DX: M53.3 Sacrococcygeal disorders, not elsewhere classified (principal); W17.89XA Other fall from one level to another, initial encounter
CPT/HCPCS: 73502; 99283; 99284

== ENCOUNTER → 2022-10-06 14:36 | Outpatient (CLI) | payer MEDICARE, SELFPAY ==
--- NOTE | 2022-10-06 14:37 | DI.CT.S_ITS ---
PROCEDURE: CT KIDNEY URETER BLADDER (KUB) INDICATIONS: Acute cystitis with hematuria TECHNIQUE: Axial sections were acquired from the lung bases to the pubic symphysis. Coronal and sagittal reformats were performed. For radiation dose reduction, the following was used: automated exposure control, adjustment of mA and/or kV according to patient size. COMPARISON: None. FINDINGS: Image quality: Excellent. Lung bases: Unremarkable. Heart: No significant findings. URINARY: Right Kidney: No stones or hydronephrosis. Right Ureter: No hydroureter. Left Kidney: No stones or hydronephrosis. Left Ureter: No hydroureter. Bladder: Mildly thickened bladder wall. ABDOMEN: Liver: Unremarkable. Gallbladder: Unremarkable. Biliary ducts: Unremarkable. Pancreas: Unremarkable. Spleen: Unremarkable. Adrenal Glands: Unremarkable. Stomach and Bowel: Colonic diverticulosis without evidence of diverticulitis. Peritoneum: No abnormal intraperitoneal fluid. No free air. Ventral Wall: No hernia. Abdominal Nodes: No enlarged retroperitoneal or mesenteric lymph nodes. Vessels: Aorta and inferior vena cava are normal in size. PELVIS: Pelvic Organs: Prostatomegaly. Brachytherapy clips present.. Pelvic Nodes: Unremarkable. Miscellaneous: No inguinal hernias are seen. Bones: Unremarkable. IMPRESSION: 1. Mildly thickened bladder wall. This could be due to chronic outlet obstruction or indicate cystitis. 2. No nephrolithiasis. Dictated by: Joseph Howard M.D. on 10/06/2022 at 15:30 Approved by: Joseph Howard M.D. on 10/06/2022 at 15:40
== END ==
PROVIDERS: Family Provider Nurse Practitioner Family; PCP Internal Medicine; Referring Provider Internal Medicine; Visit Provider Internal Medicine
DX: N30.01 Acute cystitis with hematuria (principal); R93.41 Abnormal radiologic findings on diagnostic imaging of renal pelvis, ureter, or bladder
CPT/HCPCS: 74176

== ENCOUNTER → 2022-11-11 06:59 | Outpatient (CLI) | payer MEDICARE, SELFPAY ==
[2022-11-11 09:15] LABS: Add Manual Diff / Slide Review NO; Basophils Absolute Auto 0 /uL (0-100); Basophils Percent Auto 0.4 % (0-2); Eosinophils Absolute Auto 200 /uL (0-450); Eosinophils Percent Auto 4.4 % (2-4); Hematocrit 41.7 % (41-53); Hemoglobin 14.4 g/dL (13.5-17.5); Lymphocytes Absolute Auto 1800 /uL (1100-4500); Lymphocytes Percent Auto 38.4 % (25-40); Mean Corpuscular HGB Conc 34.6 % (30-36); Mean Corpuscular Hemoglobin 31.6 PG (26-34); Mean Corpuscular Volume 91.3 fL (80-100); Monocytes Absolute Auto 600 /uL (0-900); Monocytes Percent Auto 12.6 % (3-14); Neutrophils Absolute Auto 2000 /uL (1500-7000); Neutrophils Percent Auto 44.2 % (50-75); Platelet Count 167 X10^3/uL (150-400); Red Blood Cell Count 4.57 X10^6/uL (4.5-5.9); White Blood Cell Count 4.6 X10^3/uL (4.5-11.0)
[2022-11-11 10:29] LABS: BUN Creatinine Ratio 19.5 (6-22); Blood Urea Nitrogen 17 mg/dL (9-20); Calcium 8.1 mg/dL (8.4-10.2); Carbon Dioxide 24 mmol/L (22-32); Chloride 105 mmol/L (98-107); Cholesterol 107 mg/dL (140-199); Estimated Glomerular Filt Rate > 60 mL/min (>60); Glucose 100 mg/dL (80-110); HDL Cholesterol 51 mg/dL (40-60); HEMOLYSIS < 15 (0-50); LDL Cholesterol Calculated 41 mg/dL (<100); Sodium 137 mmol/L (137-145); Triglycerides 74 mg/dL (35-150)
== END ==
PROVIDERS: Family Provider Nurse Practitioner Family; PCP Internal Medicine; Referring Provider Internal Medicine Cardiovascular Disease; Visit Provider Internal Medicine Cardiovascular Disease
DX: I25.10 Atherosclerotic heart disease of native coronary artery without angina pectoris (principal); E78.5 Hyperlipidemia, unspecified
CPT/HCPCS: 36415; 80048; 80061; 85025

== ENCOUNTER → 2023-03-30 09:15 | Outpatient (CLI) | payer MEDICARE, SELFPAY ==
--- NOTE | 2023-03-30 | DI.ECHO.S_ITS ---
[place] +---------+ Hospital +---------+ : : [address] : : : [place] : : : : [id number] : : : : Phone: [phone] : [phone] +---------+ Echocardiogram Report + + :Name: FAWN GONZALEZ Study Date: 03/30/2023 Height: 72 in : :[facility] ReadingLocation: Weight: 200 lb : : Gender: Male BSA: 2.1 m2 : :: 1950 Age: 72 yrs BP: 110/80 mmHg: :Reason For Study: CONGENITAL INSUFFICIENCY OF AORTIC VALVE : :Ordering Physician: MEHDI, : :ALEX Performed By: Joy Mcdaniels : :Referring: ALEX BETANCOURT : + + Interpretation Summary 1) Borderline enlarged left ventricular size with borderline reduced function (EF about 50%). 2) Basal to mid inferior wall extending to the basal to mid inferolateral are hypokinetic. 3) Mildly enlarged right ventricle with normal function. 4) The aortic valve is bicuspid. 5) There is mild aortic regurgitation. 6) The ascending aorta is moderately enlarged at 4.5cm. The aortic root is mildly dilated at 4.2cm. 7) Compared to the Echo done 06/15/2021, no significant change. Procedure: A two-dimensional transthoracic echocardiogram with color flow and Doppler was performed. The study quality was technically adequate. Comparison is made with the echocardiogram of 06/15/2021. The patient was in sinus rhythm with heart rates between 50-70 bpm during the exam. Left Ventricle: The left ventricle is borderline dilated. There is normal left ventricular wall thickness. The estimated left ventricular end diastolic volume is 121 ml. Left ventricular ejection fraction is estimated to be 50 +/- 5%. Basal to mid inferior wall extending to the basal to mid inferolateral are hypokinetic. Right Ventricle: The right ventricle is mildly dilated. The right ventricular systolic function is normal. Atria: The left atrium is mildly dilated. The right atrium is mildly dilated. There is no Doppler evidence for an interatrial shunt. Mitral Valve: The mitral valve is normal in structure and function. There is mild mitral regurgitation. Aortic Valve: The aortic valve is bicuspid. There is no aortic valve stenosis. There is mild aortic regurgitation. Tricuspid Valve: The tricuspid valve is normal in structure and function. There is trace tricuspid regurgitation. Pulmonic Valve: The pulmonic valve leaflets are thin and pliable; valve motion is normal. There is mild pulmonic regurgitation. Great Vessels: The aortic root is mildly dilated. The ascending aorta is moderately enlarged. The IVC is of normal diameter and collapses greater than 50% with a sniff. This suggests a low right atrial pressure of 3 mm Hg. Pericardium/ Pleura There is no pericardial effusion. There is no pleural effusion. MMode/2D Measurements & Calculations LVIDd: 5.7 cm LVOT diam: 2.4 cm LVIDs: 4.3 cm Ao root diam: 4.2 cm FS: 24.4 % asc Aorta Diam: 4.5 cm IVSd: 0.79 cm Ao Arch Diam (Prox Trans): 3.3 cm LVPWd: 0.79 cm LV valerio. diameter/BSA (cm/m^2): 2.7 LV sys. diameter/BSA (cm/m^2): 2.0 LA A2 area: 24.6 cm2 RA long axis: 5.4 cm LA A4 area: 21.6 cm2 RA area: 21.7 cm2 LA length (vol): 6.2 cm RA vol: 73.5 ml LA vol: 73.2 ml RA : 34.5 ml/m2 LA vol index: 34.4 ml/m2 IVC diam: 1.4 cm RVD1 (basal): 4.5 cm RVD2 (mid): 3.4 cm TAPSE: 2.1 cm Doppler Measurements & Calculations Ao V2 max: 169.3 cm/sec LVOT Max Amador: 74.6 cm/sec Ao V2 mean: 119.6 cm/sec LV V1 max P.2 mmHg Ao max P.5 mmHg LV V1 VTI: 19.6 cm Ao mean P.4 mmHg CONCEPCIÓN(I,D): 2.3 cm2 Ao V2 VTI: 40.2 cm CONCEPCIÓN(V,D): 2.0 cm2 sev ratio: 0.49 CONCEPCIÓN indexed to BSA (cm^2/m^2): 1.1 AI P1/2t: 666.6 msec AI dec slope: 189.4 cm/sec2 MV E max amador: 63.9 cm/sec TR max amador: 240.6 cm/sec MV A max amador: 68.4 cm/sec TR max P.1 mmHg MV E/A: 0.93 PA V2 max: 93.1 cm/sec Med Peak E' Amador: 5.0 cm/sec PA V2 mean: 66.9 cm/sec E/E' med: 12.8 PA mean P.0 mmHg Lat Peak E' Amador: 7.9 cm/sec PA pr(Accel): 25.9 mmHg E/E' lat: 8.1 E/e' average: 10.4 MV dec time: 0.29 sec SV(LVOT): 90.9 ml Reading Physician:12:57 PM
== END ==
PROVIDERS: Family Provider Nurse Practitioner Family; PCP Internal Medicine; Referring Provider Internal Medicine Cardiovascular Disease; Visit Provider Internal Medicine Cardiovascular Disease
DX: Q23.1 Congenital insufficiency of aortic valve (principal); I34.0 Nonrheumatic mitral (valve) insufficiency; I37.1 Nonrheumatic pulmonary valve insufficiency; I77.810 Thoracic aortic ectasia; I77.89 Other specified disorders of arteries and arterioles
CPT/HCPCS: 93306

== ENCOUNTER → 2023-10-09 15:33 | Outpatient (CLI) | payer MEDICARE, SELFPAY ==
--- NOTE | 2023-10-09 15:38 | DI.RAD.S_ITS ---
PROCEDURE: XR KNEE RT 3V INDICATIONS: RIGHT KNEE PAIN TECHNIQUE: 3 views of the knee were acquired. COMPARISON: None. FINDINGS: Bones: No fractures or dislocations. No suspicious bony lesions. Soft tissues: No joint effusion. No suspicious soft tissue calcifications. IMPRESSION: No acute bony abnormality or significant effusion. Approved by: Shaka Garduno M.D. on 10/09/2023 at 19:03
== END ==
PROVIDERS: Family Provider Nurse Practitioner Family; PCP Internal Medicine; Referring Provider Internal Medicine; Visit Provider Internal Medicine
DX: M25.561 Pain in right knee (principal); G89.29 Other chronic pain
CPT/HCPCS: 73562

== ENCOUNTER → 2024-01-19 07:19 | Outpatient (CLI) | payer MEDICARE, SELFPAY ==
[2024-01-19 08:27] LABS: Add Manual Diff / Slide Review NO; Basophils Absolute Auto 0 /uL (0-100); Basophils Percent Auto 0.5 % (0-2); Eosinophils Absolute Auto 200 /uL (0-450); Eosinophils Percent Auto 4.4 % (2-4); Hematocrit 43.2 % (41-53); Hemoglobin 14.7 g/dL (13.5-17.5); Lymphocytes Absolute Auto 2100 /uL (1100-4500); Lymphocytes Percent Auto 42.8 % (25-40); Mean Corpuscular HGB Conc 34.2 % (30-36); Mean Corpuscular Hemoglobin 31.7 PG (26-34); Mean Corpuscular Volume 92.8 fL (80-100); Monocytes Absolute Auto 400 /uL (0-900); Monocytes Percent Auto 9.4 % (3-14); Neutrophils Absolute Auto 2100 /uL (1500-7000); Neutrophils Percent Auto 42.9 % (50-75); Platelet Count 173 X10^3/uL (150-400); Red Blood Cell Count 4.65 X10^6/uL (4.5-5.9); Red Cell Distribution Width 13.7 % (11.6-14.8); White Blood Cell Count 4.8 X10^3/uL (4.5-11.0)
[2024-01-19 08:41] LABS: BUN Creatinine Ratio 18.1 (6-22); Blood Urea Nitrogen 17 mg/dL (9-20); Calcium 8.5 mg/dL (8.4-10.2); Carbon Dioxide 25 mmol/L (22-32); Chloride 110 mmol/L (98-107); Cholesterol 118 mg/dL (140-199); Estimated Glomerular Filt Rate > 60 mL/min (>60); Glucose 111 mg/dL (80-110); HDL Cholesterol 56 mg/dL (40-60); HEMOLYSIS < 15 (0-50); LDL Cholesterol Calculated 44 mg/dL (<100); Potassium 4.4 mmol/L (3.4-5.1); Sodium 139 mmol/L (137-145); Triglycerides 89 mg/dL (35-150)
== END ==
LOC: LAB 07:20
PROVIDERS: Family Provider Nurse Practitioner Family; PCP Internal Medicine; Referring Provider Internal Medicine Cardiovascular Disease; Visit Provider Internal Medicine Cardiovascular Disease
DX: I25.10 Atherosclerotic heart disease of native coronary artery without angina pectoris (principal)
CPT/HCPCS: 36415; 80048; 80061; 85025

== ENCOUNTER → 2024-11-08 07:01 | Outpatient (CLI) | payer MEDICARE, OTHER, SELFPAY ==
[2024-11-08 08:02] LABS: Alanine Aminotransferase 47 IU/L (<50); Albumin 4.1 g/dL (3.5-5.0); Alkaline Phosphatase 79 U/L (38-126); Aspartate Aminotransferase 43 IU/L (17-59); BUN Creatinine Ratio 21.3 (6-22); Bilirubin Total 1.1 mg/dL (0.2-1.3); Blood Urea Nitrogen 19 mg/dL (9-20); Calcium 8.9 mg/dL (8.4-10.2); Carbon Dioxide 25 mmol/L (22-32); Chloride 106 mmol/L (98-107); Cholesterol 134 mg/dL (140-199); Estimated Glomerular Filt Rate > 60 mL/min (>60); Globulin 2.1 g/dL (1.7-4.1); Glucose 96 mg/dL (70-99); HDL Cholesterol 72 mg/dL (40-60); HEMOLYSIS < 15 (0-50); LDL Cholesterol Calculated 50 mg/dL (<100); Potassium 4.1 mmol/L (3.4-5.1); Sodium 137 mmol/L (137-145); Total Protein 6.2 g/dL (6.3-8.2); Triglycerides 62 mg/dL (35-150)
[2024-11-08 08:31] LABS: Prostate Specific Antigen Scrn 1.66 ng/mL (0.1-4.0)
[2024-11-08 08:49] LABS: Hep C Virus Ab w/Reflex Quant NEGATIVE s/c (NEGATIVE)
== END ==
LOC: LAB 07:02
PROVIDERS: Family Provider Nurse Practitioner Family; PCP Family Medicine; Referring Provider Family Medicine; Visit Provider Family Medicine
DX: I25.10 Atherosclerotic heart disease of native coronary artery without angina pectoris (principal); Z12.5 Encounter for screening for malignant neoplasm of prostate; E78.5 Hyperlipidemia, unspecified
CPT/HCPCS: 36415; 80053; 80061; 83036; 86803; G0103

== ENCOUNTER → 2024-11-11 16:52 | Outpatient (CLI) | payer MEDICARE, OTHER, SELFPAY ==
[2024-11-13 14:12] LABS: Fecal Immunochemical Test Negative (Negative)
== END ==
PROVIDERS: Family Provider Nurse Practitioner Family; PCP Family Medicine; Referring Provider Family Medicine; Visit Provider Family Medicine
DX: Z12.11 Encounter for screening for malignant neoplasm of colon (principal)
CPT/HCPCS: 82274

== ENCOUNTER → 2025-05-21 13:05 | Outpatient (CLI) | payer MEDICARE, OTHER, SELFPAY | PROVIDERS: Family Provider Nurse Practitioner Family; PCP Family Medicine; Visit Provider Family Medicine | DX: R39.9 Unspecified symptoms and signs involving the genitourinary system (principal) | CPT/HCPCS: 87077; 87086 ==

== ENCOUNTER 2025-06-13 12:27 | Emergency (ER) | payer MEDICARE, OTHER, SELFPAY ==
[2025-06-13 12:41] VITALS: PULSE 67; RESP 16; TEMP 36.6; O2SAT 97; BMI 25.7
[2025-06-13 12:46] VITALS: BP 127/71; BMI 25.7
--- NOTE | 2025-06-13 12:54 | ED_ITS ---
HPI - Male Genitourinary General Chief complaint: Urogenital-Male Stated complaint: possible uti Time Seen by Provider: 06/13/25 12:52 Source: patient History of Present Illness HPI Narrative: Mr. Munroe is a pleasant 74-year-old male with a past medical history of CAD, HLD, enlarged prostate who presents to the emergency department for concern of UTI type symptoms x2 days. Patient states that he used to deal with frequent UTIs due to urinary retention, he did not have a UTI for the last 2 years however little over a week ago he started having UTI symptoms so completed 1 week course of Bactrim from his PCP. His symptoms improved however they returned 2 days ago with dysuria, cloudy urine, malodorous urine and suprapubic abdominal discomfort. He denies any fevers, flu-like symptoms, vomiting or diarrhea. He does often have frequency and difficulty emptying his bladder. He denies history of any prostate surgery. Related Data Home Medications ?Medication ?Instructions ?Recorded ?Confirmed metoprolol succinate 25 mg 25 mg PO DAILY 11/24/2112/08 tablet,extended release 24 hr rosuvastatin 40 mg tablet 40 mg PO DAILY 08/31/2312/08 aspirin 81 mg tablet,delayed 81 mg PO DAILY 04/05/24 1 07/21/24 release Previous Rx's ?Medication ?Instructions ?Recorded tadalafil 5 mg tablet 5 mg PO DAILY #90 tabs 01/29 tamsulosin 0.4 mg capsule 0.8 mg (2 x 0.4 mg) PO ONCE PM 01/29/25 #180 caps levofloxacin 750 mg tablet 750 mg PO Q24H 5 days #5 ta bs 06/13/25 levofloxacin 750 mg tablet 750 mg PO Q24H 5 days #5 ta bs 06/13/25 Allergies Allergy/AdvReac Type Severity Reaction Status Date / Time No Known Drug Allergies Allergy Verified 06/13/25 12:41 Review of Systems Review of Systems ROS Unobtainable: All systems reviewed & are unremarkable except as noted in HPI and below Patient History Medical History Encounter for subsequent annual wellness visit (AWV) in Medicare patient Heart murmur IFG (impaired fasting glucose) Hyperlipidemia, unspecified CAD (coronary artery disease) History of gross hematuria 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 Well-developed patient, in no acute distress. HEAD: Atraumatic. Normocephalic. NECK: Trachea midline. Cervical ROM intact. CARDIOVASCULAR: Regular rate RESPIRATORY: ?Nonlabored respirations. ?Speaking in clear, full sentences. ? GASTROINTESTINAL: Abdomen soft, non-tender, nondistended. Soft nontender umbilical hernia and right inguinal hernia. BACK: No CVA tenderness. NEURO: AOx3. ?Clear speech. ?Moves all 4 extremities appropriately. Ambulates independently. SKIN: No rash or erythema of visible areas Initial Vital Signs Initial Vital Signs: Vital Signs Temperature 97.8 F 06/13/25 12:41 Pulse Rate 67 06/13/25 12:41 Respiratory Rate 16 06/13/25 12:41 Pulse Oximetry 97 06/13/25 12:41 Oxygen Delivery Method Room Air 06/13/25 12:41 Course Orders Ordered: Discontinued Medications Levofloxacin (Levofloxacin 250 Mg Tablet) 750 mg PO NOW ONE Stop: 06/13/25 14:35 Last Admin: 06/13/25 14:40 Dose: 750 mg Documented By: SBF Lidocaine HCl (Lidocaine 2% (Glydo) 6 Ml Gel) 6 ml TOP NOW ONE Stop: 06/13/25 13:44 Last Admin: 06/13/25 14:15 Dose: 6 ml Documented By: RLS Vital Signs Vital signs: Vital Signs - 8 hr 06/13/25 12:41 06/13/25 12:46 Temperature 97.8 F Pulse Rate 67 Respiratory Rate 16 Blood Pressure 127/71 Pulse Oximetry 97 Oxygen Delivery Method Room Air MDM - Male Genitourinary Medical Records Attestation: I reviewed the patient's medical records. Lab Data Labs: Lab Results 06/13/25 Range/Units 13:39 Urine Color Yellow Urine Appearance Cloudy Urine pH 6.0 (4.5-8.0) Ur Specific [place] 1.020 (1.000-1.035) Urine Protein 1+ H (Negative) Urine Glucose (UA) Negative (Negative) g/dL Urine Ketones Negative (NEGATIVE) Urine Occult Blood 2+ H (Negative) Urine Nitrate Positive H (Negative) Urine Bilirubin Negative (NEGATIVE) Urine Urobilinogen 1.0 (0.2) E.U./dL Ur Leukocyte Esterase 2+ H (NEGATIVE) Urine RBC 1-5/hpf (0-5/HPF) Urine WBC >100/hpf H (0-5/HPF) Ur Squamous Epith Cells 0-1 /hpf (0-5/HPF) Urine Bacteria Many (>30) H (None) Ur Culture Indicated? Specimen cultured Vol Urine Centrifuged 10ml (spun) MDM Narrative Medical decision making narrative: 74-year-old male with a past medical history of CAD, HLD, enlarged prostate who presents to the emergency department for concern of UTI type symptoms x2 days. Differential diagnosis includes but isn't limited to UTI, cystitis, incomplete bladder emptying, inguinal hernia, etc. On exam the patient is in no acute distress, nontoxic appearing, all vital signs within normal limits. On 05/21/2025 patient had a urine culture that grew E coli with some resistance but susceptible to Bactrim, nitrofurantoin, levofloxacin, ciprofloxacin. Patient completed a course of Bactrim with improvement in symptoms however after finishing the antibiotics he had recurrence of symptoms for the last 2 days. We will obtain urinalysis and postvoid residual to make sure patient is not retaining significant urine. Postvoid residual was >300. Urinalysis is consistent with acute infection as he still is nitrite positive with leuks and WBCs and bacteria. We will base antibiotic coverage off of most recent urine culture, he completed Bactrim so I do recommend levofloxacin at this time. After shared decision-making with the patient, he is agreeable to Clements catheter placement in the ED for management of acute urinary retention. Clements catheter was placed, flowing well, 1st dose of levofloxacin given. Antibiotics sent to pharmacy of choice. Encourage patient to follow up promptly with urology for further management and catheter management. Discussed strict ER return precautions which patient verbalized understanding of. He is ambulatory and stable for discharge home. Discharge Plan Departure Patient Disposition: Home Clinical Impression: Acute urinary retention, Acute UTI Instructions: DI for Urinary Tract Infection (UTI), DI for Urinary Retention in Men Activity Restrictions/Additional Instructions: Dear Mr. Munroe, Thank you for coming to the emergency department. Today you were evaluated for concern of urinary tract infection. Unfortunately your bladder scan today did reveal that you were retaining a significant amount of urine and therefore a Clements catheter needed to be placed. Your urine is also still showing a persistent infection. Please complete the full course of antibiotics that were prescribed to you, urine culture was sent today and you will be called if the results require a different antibiotic. On Monday morning, please call the urologist's office to schedule a follow up appointment. The catheter should remain in place until you see the urologist in her further evaluated. Please return to the emergency department if you develop blockage of the catheter, significant bleeding, severe pain, fevers, vomiting or any other concerns. Please follow up with your primary care doctor within the next 2-3 days for ER follow-up. (If you do not have a PCP you can call [phone]. ?to schedule an appointment with an [facility] Primary Care Provider) IF YOU DEVELOP ANY NEW OR WORSENING SYMPTOMS, RETURN TO THE ER! Please read the attached instructions, they highlight more specific treatments and interventions for you at home. Thank you for letting me participate in your care, Estrella Montana PA-C Prescriptions: New levofloxacin 750 mg tablet 750 mg PO Q24H 5 Days Qty: 5 0RF levofloxacin 750 mg tablet 750 mg PO Q24H 5 Days Qty: 5 0RF No Action tamsulosin 0.4 mg capsule 0.8 mg PO ONCE PM Qty: 180 3RF tadalafil 5 mg tablet 5 mg PO DAILY Qty: 90 3RF metoprolol succinate 25 mg tablet extended release 24 hr 25 mg PO DAILY aspirin 81 mg tablet,delayed release (DR/EC) 81 mg PO DAILY rosuvastatin 40 mg tablet 40 mg PO DAILY Referrals: Julio Cesar Khan DO [Physician, Urology] Referral Note: urinary retention Duyen Grant DO [Primary Care Provider, Family Practice] Stand Alone Forms: Patient Portal/API
[2025-06-13 13:49] LABS: Appearance Urine UA CLOUDY; Bilirubin Urine UA NEGATIVE (NEGATIVE); Color Urine UA YELLOW; Glucose Urine UA NEGATIVE (Negative); Ketones Urine UA NEGATIVE (NEGATIVE); Leukocyte Esterase Urine UA 2+ (NEGATIVE); Nitrite Urine UA POSITIVE (Negative); Occult Blood Urine UA 2+ (Negative); Protein Urine UA 1+ (Negative); Specific Gravity Urine UA 1.020 (1.000-1.035); Urobilinogen Urine UA 1.0 E.U./dL (0.2); pH Urine UA 6.0 (4.5-8.0)
[2025-06-13 13:54] LABS: Culture Indicated Urine Specimen Cultured
[2025-06-13] MEDS: LIDOCAINE 2% (GLYDO) 6 ML GEL TOP (14:15)
== END 2025-06-13 15:01 | disposition home or self-care (01) ==
PROVIDERS: Emergency Provider Physician Assistant; Family Provider Nurse Practitioner Family; PCP Family Medicine
DX: N39.0 Urinary tract infection, site not specified (principal); R33.9 Retention of urine, unspecified
CPT/HCPCS: 51702; 51798; 81001; 87077; 87086; 87186; 99283; 99284

== ENCOUNTER → 2025-06-25 10:01 | Outpatient (CLI) | payer MEDICARE, OTHER, SELFPAY | PROVIDERS: Family Provider Nurse Practitioner Family; PCP Family Medicine; Visit Provider Family Medicine | DX: N40.1 Benign prostatic hyperplasia with lower urinary tract symptoms (principal); N39.0 Urinary tract infection, site not specified; R33.8 Other retention of urine | CPT/HCPCS: 87077; 87086 ==